=== PATIENT | male | born 1985 | race Caucasian/White ===

== ENCOUNTER 2017-03-10 07:21 | Emergency (ER) | payer OTHER ==
[~2017-03-10 07:21] MED LIST: ALBUTEROL17 GM INH; AMOXICILLIN875 MG PO; FLEXERIL10 MG PO; IBUPROFEN PO; KETOPROFEN PO; LOMOTIL TABLET1 TAB PO; NAPROSYN500 MG PO; NO MEDICATIONS; PEN-VEE K PO; PHENERGAN PO; PHENERGAN W/CO120 ML PO; PHENERGAN25 M1 DOB; PHENERGAN25 MG PO; PRILOSEC PO; REGLAN PO; SKELAXIN PO; VOLTAREN75 MG PO
== END 2017-03-10 08:09 | disposition home or self-care (01) ==
LOC: SED 07:21
DX: J20.9 Acute bronchitis, unspecified (principal); J06.9 Acute upper respiratory infection, unspecified; J45.909 Unspecified asthma, uncomplicated
CPT/HCPCS: 87651; 99282

== ENCOUNTER 2017-07-05 21:58 | Emergency (ER) | payer OTHER ==
[~2017-07-05] VITALS: Ht 180.3 cm; Wt 84.4 kg
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
== END 2017-07-06 00:58 | disposition home or self-care (01) ==
LOC: SED 21:58
DX: S06.0X0A Concussion without loss of consciousness, initial encounter (principal); S39.012A Strain of muscle, fascia and tendon of lower back, initial encounter; S00.83XA Contusion of other part of head, initial encounter; J45.909 Unspecified asthma, uncomplicated; F17.200 Nicotine dependence, unspecified, uncomplicated; Y04.0XXA Assault by unarmed brawl or fight, initial encounter; Y92.009 Unspecified place in unspecified non-institutional (private) residence as the place of occurrence of the external cause
CPT/HCPCS: 70450; 70486; 72100; 72125; 99284